=== PATIENT | male | born 1985 | race Two or more races ===

== ENCOUNTER 2019-03-09 06:06 | Emergency (ER) | payer OTHER ==
[~2019-03-09] VITALS: Ht 165.1 cm; Wt 88.5 kg
[2019-03-09 07:09] LABS: Basophils # (auto) 0.1 uL; Basophils % (auto) 1.8 % (0.0-2.0); Eosinophils # (auto) 0.3 uL; Eosinophils % (auto) 4.4 % (0.0-7.0); Hematocrit 44.9 % (41.0-53.0); Hemoglobin 15.4 g/dL (13.5-17.5); Lymphocytes # (auto) 1.5 uL; Lymphocytes % (auto) 25.6 % (10.0-50.0); Mean Corpuscular Hemoglobin 31.7 pg (28.0-32.0); Mean Corpuscular Hgb Conc. 34.2 g/dL (32.0-36.0); Mean Corpuscular Volume 92.7 fL (80.0-100.0); Monocytes # (auto) 0.5 uL; Monocytes % (auto) 8.7 % (0.0-12.0); Neutrophils # (auto) 3.6 uL; Neutrophils % (auto) 59.5 % (37.0-80.0); Nucleated Red Blood Cells % 0.1 %; Platelet Count (auto) 427 10^3/uL (140-450); Red Blood Cells 4.85 10^6/uL (4.5-5.90); Red Cell Distribution Width 13.7 % (11.8-14.3)
[2019-03-09 07:43] LABS: Albumin 3.8 g/dL (3.4-5.0); BUN/Creatinine Ratio 14.4; Calcium 8.6 mg/dL (8.5-10.1)
[2019-03-09 07:45] LABS: Bilirubin, Total 0.6 mg/dL (0.2-1.0); Total Protein 7.8 g/dL (6.4-8.2)
[2019-03-09] MEDS: SODIUM CHLORIDE 0.9% 1,000 ML IV ONE ×2 (08:06→08:35)
[2019-03-09] MEDS: MECLIZINE HCL 25 MG TAB PO ONE (08:11)
[2019-03-09 08:50] VITALS: BP 134/79
== END 2019-03-09 08:53 | disposition home or self-care (01) ==
LOC: EDBD 06:06 → ER 06:06
DX: R42 Dizziness and giddiness (principal); R11.2 Nausea with vomiting, unspecified; Z88.0 Allergy status to penicillin
CPT/HCPCS: 36415; 70450; 80053; 82962; 85025; 96360; 99284; J7030; J8597

== ENCOUNTER 2019-03-11 09:56 | Emergency (ER) | payer OTHER ==
[~2019-03-11] VITALS: Ht 165.1 cm; Wt 88.0 kg
[2019-03-11 10:16] VITALS: BP 137/91
== END 2019-03-11 11:59 | disposition home or self-care (01) ==
LOC: ER 09:59
DX: R42 Dizziness and giddiness (principal); Z88.0 Allergy status to penicillin